=== PATIENT | female | born 1995 | race Caucasian/White ===

== ENCOUNTER 2021-12-20 09:14 | Emergency (ER) | payer BC ==
[~2021-12-20] VITALS: Ht 167.6 cm; Wt 139.7 kg
[2021-12-20 09:14] VITALS: BP_SYST 140
[2021-12-20 10:22] LABS: HEMATOCRIT 39.1 % (36-48); HEMOGLOBIN 13.2 g/dL (12.0-16.0); MEAN CORPUSCULAR HEMOGLOBIN 30 pg (27-31); MEAN CORPUSCULAR HGB CONC 34 % (32-36); MEAN CORPUSCULAR VOLUME 90 fL (79.0-98.0); PLATELET COUNT (AUTO) 314 K/uL (130-430); RED BLOOD CELL COUNT(AUTO) 4.35 MIL/uL (4.2-6.2); RED CELL DISTRIBUTION WIDTH 14.1 % (9.0-15.0)
[2021-12-20] MEDS ORDERED: METOCLOPRAMIDE HCL 10 MG/2 ML VIAL IVP ONE (10:30)
[2021-12-20] MEDS ORDERED: NACL 0.9% 1,000 ML IV ONE (10:30)
[2021-12-20 10:32] LABS: CREATININE 0.54 mg/dL (0.55-1.30); POTASSIUM 3.5 mmol/L (3.5-5.1)
[2021-12-20 10:43] LABS: ALBUMIN 3.3 g/dL (3.4-4.8); TOTAL BILIRUBIN 0.3 mg/dL (0.0-1.0)
[2021-12-20] MEDS ORDERED: KETOROLAC TROMETHAMINE 60 MG/2 ML VIAL IM ONE (11:45)
[2021-12-20] MEDS ORDERED: KETOROLAC TROMETHAMINE 30 MG VIAL ONE (11:55)
[2021-12-20] MEDS ORDERED: KETOROLAC TROMETHAMINE 30 MG VIAL IVP ONE (12:00)
[2021-12-20] MEDS ORDERED: TRAM50TA2 PO (12:04)
== END 2021-12-20 12:14 | disposition home or self-care (01) ==
LOC: SED 09:14
DX: R51.9 Headache, unspecified (principal); H53.149 Visual discomfort, unspecified
CPT/HCPCS: 36415; 70450; 76376; 80053; 83051; 84702; 85014; 85048; 85049; 86886; 86900; 86901; 96374; 96375; 99284; J1885; J2765; J7030